=== PATIENT | female | born 1990 | race Caucasian/White ===

== ENCOUNTER 2019-03-30 00:53 | Emergency (ER) | payer SELFPAY ==
[2019-03-30] MEDS ORDERED: Ketorolac Tromethamine 30 MG/ML VIAL ONE (01:11)
[2019-03-30 01:36] LABS: #Basophils 0.1 thou/uL (0.0-0.2); #Eosinphils 0.3 thou/uL (0.0-0.7); #Lymphocytes 3.1 thou/uL (1.20-3.40); #Monocytes 1.1 thou/uL (0.11-0.59); #Neutrophils 8.1 thou/uL (1.40-6.50); %Basophils 0.6 % (0.0-1.0); %Lymphocytes 24.4 % (21.0-51.0); %Monocytes 9.1 % (0.0-10.0); Hemoglobin 10.2 g/dL (12.0-16.0); Mean Corpuscular HGB CONC 31.2 g/dL (32.0-36.0); Mean Corpuscular Hemoglobin 24.7 pg (27.0-31.0); Mean Platelet Volume 7.1 fL (7.4-10.4); Platelet Count 426 thou/uL (130-400); RBC Distribution Width 16.8 % (11.5-14.5); Red Blood Cell (RBC) Count 4.12 mill/uL (4.20-5.40); White Blood Cell (WBC) Count 12.6 thou/uL (4.8-10.8)
[2019-03-30 01:58] LABS: ALT (SGPT) 10 U/L (8-55); AST (SGOT) 16 U/L (5-34); Albumin 3.3 g/dL (3.5-5.0); Alkaline Phosphatase 95 U/L (40-110); Anion Gap 11 mmol/L (10-20); BUN (Urea Nitrogen) 7 mg/dL (7.0-18.7); Bilirubin, Total 0.2 mg/dL (0.2-1.2); Calc. Creatinine Clearance 0 mL/min (70-130); Calcium 8.1 mg/dL (7.8-10.44); Carbon Dioxide 25 mmol/L (22-29); Chloride 106 mmol/L (98-107); Estimated GFR-MDRD Greater than 90; Globulin 2.7 g/dL (2.4-3.5); Glucose 93 mg/dL (70-105); Potassium 3.6 mmol/L (3.5-5.1); Sodium 138 mmol/L (136-145)
[2019-03-30 02:30] LABS: BHCG - Serum Negative (NEGATIVE); Pregs Control Background? CLEAR/WHITE (CLR/WHITE); Pregs Control Bar Appear? YES (CONTROL BAR)
--- NOTE | 2019-03-30 15:12 | ULT ---
US Pelvic Transvag History: Pelvic pain Comparison: None. Findings: Real-time grayscale, color, and spectral analysis of the pelvis performed transvaginal appr [facility]. Uterus measures 8.2 x 4.7 x 5.6 cm. Multiple nabothian cysts. Endometrial thickness is normal. Adequate vascular flow to both ovaries. Moderate free fluid in the pelvis. Impression: Moderate free fluid in the pelvis otherwise unremarkable exam.
== END 2019-03-30 03:01 | disposition home or self-care (01) ==
LOC: ERS 00:53
DX: N83.209 Unspecified ovarian cyst, unspecified side (principal); F17.210 Nicotine dependence, cigarettes, uncomplicated; Z71.6 Tobacco abuse counseling
CPT/HCPCS: 76856; 80053; 84703; 85025; 96361; 96374; 99406; J1885

== ENCOUNTER 2019-04-11 19:37 | Emergency (ER) | payer SELFPAY | END 2019-04-11 22:23 | disposition left against medical advice (07) | LOC: ERS 19:37 | DX: Z53.21 Procedure and treatment not carried out due to patient leaving prior to being seen by health care provider (principal) ==

== ENCOUNTER 2019-04-13 18:15 | Emergency (ER) | payer SELFPAY ==
[2019-04-13 19:39] LABS: #Basophils 0.1 thou/uL (0.0-0.2); #Eosinphils 0.1 thou/uL (0.0-0.7); #Lymphocytes 2.7 thou/uL (1.20-3.40); #Monocytes 1.1 thou/uL (0.11-0.59); #Neutrophils 9.2 thou/uL (1.40-6.50); %Basophils 0.5 % (0.0-1.0); %Eosinophils 0.6 % (0.0-10.0); %Lymphocytes 20.2 % (21.0-51.0); %Monocytes 8.6 % (0.0-10.0); %Neutrophils 70.1 % (42.0-75.0); Hemoglobin 10.4 g/dL (12.0-16.0); Mean Corpuscular HGB CONC 32.3 g/dL (32.0-36.0); Mean Corpuscular Hemoglobin 25.1 pg (27.0-31.0); Mean Corpuscular Volume 77.8 fL (78.0-98.0); Mean Platelet Volume 6.9 fL (7.4-10.4); Platelet Count 501 thou/uL (130-400); RBC Distribution Width 17.3 % (11.5-14.5); Red Blood Cell (RBC) Count 4.13 mill/uL (4.20-5.40); White Blood Cell (WBC) Count 13.1 thou/uL (4.8-10.8)
[2019-04-13 20:01] LABS: ALT (SGPT) 24 U/L (8-55); AST (SGOT) 23 U/L (5-34); Albumin 3.8 g/dL (3.5-5.0); Alkaline Phosphatase 120 U/L (40-110); Anion Gap 11 mmol/L (10-20); BUN (Urea Nitrogen) 10 mg/dL (7.0-18.7); Bilirubin, Total 0.6 mg/dL (0.2-1.2); Calc. Creatinine Clearance 0 mL/min (70-130); Calcium 9.1 mg/dL (7.8-10.44); Carbon Dioxide 28 mmol/L (22-29); Chloride 105 mmol/L (98-107); Estimated GFR-MDRD 88; Glucose 91 mg/dL (70-105); Potassium 4.2 mmol/L (3.5-5.1); Protein, Total 6.8 g/dL (6.0-8.3); Sodium 140 mmol/L (136-145)
[2019-04-13] MEDS ORDERED: Ibuprofen 200 MG TAB ONE (22:44)
--- NOTE | 2019-04-14 08:48 | ULT ---
PRELIMINARY REPORT/[facility]/EMERGENCY AFTER HOURS PROCEDURE: Receipt of this report by the clinical staff was confirmed with Maury Reagan DO by Dina Jasso i on Apr 14, 2019 00:41:00 PRODUCTION ASSEMBLY SUPERVISOR. Addendum electronically signed by Mireya Jasso on April 14, 2019 12:42:42 AM PRODUCTION ASSEMBLY SUPERVISOR EXAM: US Duplex left Upper Extremity Veins. CLINICAL HISTORY: HX LUE PAIN S/P PLASMA DONATION. SEE NOTES ON LAST IMAGE. THANKS TECHNIQUE: Real-time ultrasound scan of the veins of the left upper extremity with color Doppler flow, spectral waveform analysis and compression. COMPARISON: None provided. FINDINGS: VEINS: The internal jugular, subclavian, axillary, and brachial veins are echolucent, compressible, and demonstrate normal color Doppler flow. Thrombus is noted in the mid basilic and distal cephalic vein regions SOFT TISSUES: No acute finding. IMPRESSION: Thrombus in the basilic and cephalic vein regions ELECTRONICALLY SIGNED BY: Wood Mckinley MD Apr 14, 2019 12:30:32 AM PRODUCTION ASSEMBLY SUPERVISOR This report is intended for review by the ordering physician only, in accordance of law. If you recei ve this report in error, please call [facility] at [phone]. FINAL REPORT EMERGENT AFTER HOURS LEFT UPPER EXTREMITY VENOUS ULTRASOUND: FINDINGS/IMPRESSION: I agree with the findings and impression given in the preliminary report per [facility] physici an. There is thrombus in the left basilic and cephalic veins. No DVT is seen within the subclavian, axillary, or brachial veins. POS: OFF
== END 2019-04-14 01:45 | disposition home or self-care (01) ==
LOC: ERS 18:15
DX: I82.612 Acute embolism and thrombosis of superficial veins of left upper extremity (principal); F17.210 Nicotine dependence, cigarettes, uncomplicated
CPT/HCPCS: 36415; 80053; 85025; 85379